=== PATIENT | male | born 1990 | race Caucasian/White ===

== ENCOUNTER 2018-05-11 09:03 | Emergency (ER) | payer OTHER ==
[~2018-05-11] VITALS: Ht 188 cm; Wt 77.1 kg
[2018-05-11] MEDS ORDERED: GABA-534 PO (09:17)
[2018-05-11] MEDS ORDERED: ONDANSETRON ODT 4 MG TAB.RAPDIS SL ONE (09:27)
[2018-05-11] MEDS ORDERED: GABAPENTIN 300 MG CAPSULE PO ONE (09:30)
[2018-05-11] MEDS ORDERED: ONDANSETRON ODT 4 MG TAB.RAPDIS ONE (09:47)
[2018-05-11] MEDS ORDERED: GABAPENTIN 300 MG CAPSULE ONE (09:47)
--- NOTE | 2018-05-11 09:50 | NUR ---
Patient discharged to home in stable conditon with brisk steady gait. Written and verbal after care instructions given to patient. Patient verbalizes understanding of instructions. Prescription for gabapentin & zofran was given to patient.
== END 2018-05-11 09:51 | disposition home or self-care (01) ==
LOC: ER 09:06
DX: F15.23 Other stimulant dependence with withdrawal (principal); Z79.899 Other long term (current) drug therapy
CPT/HCPCS: A4663; Q0162

== ENCOUNTER 2018-06-08 09:50 | Emergency (ER) | payer OTHER ==
[~2018-06-08] VITALS: Ht 188 cm; Wt 86.2 kg
[~2018-06-08 09:50] MED LIST: GABA-534 PO
--- NOTE | 2018-06-08 10:22 | NUR ---
C/o not feeling well because of patient has no Gabapentin. Came for med refill. Seen and eval by ERMD, orders made. EKG ordered and done, result relayed to DRED.
== END 2018-06-08 10:31 | disposition home or self-care (01) ==
LOC: ER 09:50
DX: F19.939 Other psychoactive substance use, unspecified with withdrawal, unspecified (principal); F17.200 Nicotine dependence, unspecified, uncomplicated
CPT/HCPCS: 93005; A4663

== ENCOUNTER 2018-06-25 09:51 | Emergency (ER) | payer OTHER ==
[~2018-06-25] VITALS: Ht 188 cm; Wt 86.2 kg
--- NOTE | 2018-06-25 10:21 | NUR ---
Patient discharged to home in stable conditon. Written and verbal after care instructions given. Patient verbalizes understanding of instructions.
== END 2018-06-25 10:22 | disposition home or self-care (01) ==
LOC: ER 09:51
DX: F15.23 Other stimulant dependence with withdrawal (principal); F17.200 Nicotine dependence, unspecified, uncomplicated
CPT/HCPCS: A4663

== ENCOUNTER 2018-08-07 21:17 | Emergency (ER) | payer OTHER ==
[~2018-08-07] VITALS: Ht 188 cm; Wt 83.9 kg
--- NOTE | 2018-08-07 21:57 | NUR ---
Pt awake, alert, oriented x3. No sob noted. No s/sx of distress noted. Resp even and unlabored. Pt came to the ED for medication refill. Pt is taking Gabapentin 600mg PO BID, last admin dose was a few days ago. Pt stated that he usually gets a prescription and med mail service at work but the "order has not ran since this AM." Will cont to monitor. Call light within reach.
--- NOTE | 2018-08-07 22:14 | NUR ---
Patient discharged to home in stable conditon. Written and verbal after care instructions given. Patient verbalizes understanding of instructions.
[2018-08-07 22:15] VITALS: BP 140/92
== END 2018-08-07 22:17 | disposition home or self-care (01) ==
LOC: ER 21:23
DX: F15.23 Other stimulant dependence with withdrawal (principal); F17.200 Nicotine dependence, unspecified, uncomplicated
CPT/HCPCS: 99283; A4663